=== PATIENT | male | born 1940 | race Caucasian/White ===

== ENCOUNTER 2022-10-23 13:16 | Outpatient (OUT) | payer OTHER, SELFPAY ==
--- NOTE | 2022-10-23 13:28 | XR_ITS ---
The [address] [address] Patient Name: LUIS HUNTLEY MRN: [id number] date: 1940 Sex: M Assigned Patient Location: RAD Current Patient Location: RAD Accession/Order Number: [id number] Exam Date: 10/23/2022 13:30 Report Date: 10/23/2022 13:58 At the request of: DEBBI COWAN Procedure: XR chest 2V EXAM: XR chest 2V HISTORY: Atelectasis J98.11 COMPARISON: 04/09/2022 TECHNIQUE: Upright PA and lateral chest x-ray with nipple markers. FINDINGS: The heart is not enlarged and the vasculature is not distended. Mild chronic changes persist at the right lung base. No acute infiltrate, effusion or pneumothorax is identified. The nodular opacity at the left lung base laterally does not appear to correspond to a nipple shadow. Degenerative changes are seen in the spine. XR/XR chest 2V IMPRESSION: No acute infiltrate or evidence of cardiac decompensation. The previous identified nodular and the left lung base laterally is not an apparent nipple shadow. Comparison with a more remote chest x-ray may be helpful. If further evaluation is clinically indicated at this time, then perhaps a CT scan of the chest would be helpful. Electronically authenticated by: ZAKI SANTOS Date: 10/23/2022 13:58
== END 2022-10-23 13:17 | disposition home or self-care (01) ==
DX: J98.11 Atelectasis (principal)
CPT/HCPCS: 71046

== ENCOUNTER 2022-10-30 09:28 | Outpatient (OUT) | payer OTHER, SELFPAY ==
--- NOTE | 2022-10-30 09:33 | CT_ITS ---
The [address] [address] Patient Name: LUIS HUNTLEY MRN: [id number] date: 1940 Sex: M Assigned Patient Location: CT Current Patient Location: CT Accession/Order Number: [id number] Exam Date: 10/30/2022 09:39 Report Date: 10/30/2022 11:05 At the request of: DEBBI COWAN Procedure: CT chest wo con CT chest wo con CLINICAL HISTORY: Left lung nodule versus nipple shadow. Atelectasis J98.11 COMPARISON: 10/23/2022. 04/09/2022. CT CHEST TECHNIQUE: Noncontrast axial CT images obtained from lung apices through lung bases. Coronal and sagittal reconstructions performed. Dose reduction techniques were achieved by using automated exposure control and/or adjustment of mA and/or kV according to patient size and/or use of iterative reconstruction technique. CT CHEST FINDINGS: Lower thyroid unremarkable. No axillary adenopathy. Thoracic spondylosis without acute bony process. Visualized upper abdomen demonstrates cholelithiasis. Bilateral adrenal benign adenomas. Mild cardiomegaly. Coronary artery calcifications. No pericardial effusion. Subcentimeter mediastinal nodes without adenopathy. Question slight wall thickening versus incomplete distention of the distal thoracic esophagus. There is a small area of curvilinear scarring and calcification in the peripheral left lung, benign but has slightly nodular appearance on transmitter engineer x-ray. There is also a late subacute nearly healed left anterior 6th rib deformity which corresponds to the questioned nodule on x-ray. There is no true parenchymal nodule or mass corresponding to the radiographic abnormality but there is a medial posterior 5 mm subpleural nodule which cannot be seen radiographically. Image 77 of series 3. No active consolidation or effusion. Mild chronic scarring in the right lung base. Mild pulmonary emphysema and borderline bronchiectasis. Prior postoperative change left lung. CT/CT chest wo con IMPRESSION: Posterior left lower lobe 5 mm nodule, radiographically occult. Follow-up in 6 months. Additional chronic changes as noted with no other concerning dominant parenchymal lesion. Mild pulmonary emphysema and chronic scarring. Electronically authenticated by: HERLINDA BEAUCHAMP Date: 10/30/2022 11:05
== END 2022-10-30 09:29 | disposition home or self-care (01) ==
LOC: CT 09:28
DX: J98.11 Atelectasis (principal); R91.1 Solitary pulmonary nodule; J43.9 Emphysema, unspecified
CPT/HCPCS: 71250